=== PATIENT | female | born 1965 | race Caucasian/White ===

== ENCOUNTER → 2020-01-26 10:00 | Outpatient (BNVA) | payer OTHER, SELFPAY | PROVIDERS: Visit Provider Nurse Practitioner Family | DX: R68.89 Other general symptoms and signs (principal); J06.9 Acute upper respiratory infection, unspecified; B97.89 Other viral agents as the cause of diseases classified elsewhere | CPT/HCPCS: 87400 ==

== ENCOUNTER → 2020-05-06 16:24 | Outpatient (BNVA) | payer OTHER, SELFPAY | PROVIDERS: Visit Provider Emergency Medicine | DX: J43.9 Emphysema, unspecified (principal); R05 Cough; R06.02 Shortness of breath | CPT/HCPCS: 71046 ==

== ENCOUNTER → 2020-06-16 11:06 | Outpatient (BNVA) | payer OTHER, SELFPAY | PROVIDERS: Visit Provider Emergency Medicine | DX: J43.9 Emphysema, unspecified (principal); I10 Essential (primary) hypertension; E66.9 Obesity, unspecified; F17.200 Nicotine dependence, unspecified, uncomplicated; R53.83 Other fatigue; R60.9 Edema, unspecified | CPT/HCPCS: 71046; 80053; 80061; 83880; 84443; 85025 ==

== ENCOUNTER 2021-08-26 12:59 | Outpatient (CLI) | payer OTHER, SELFPAY ==
[2021-08-26 13:15] VITALS: BP 134/92; PULSE 73; RESP 18; TEMP 36.8; O2SAT 96; BMI 39.8
[2021-08-26 13:48] VITALS: BP 141/86; PULSE 64; RESP 18; TEMP 36.4; O2SAT 95
[2021-08-26 14:49] VITALS: BP 149/81; PULSE 66; RESP 18; TEMP 36.8; O2SAT 97
== END 2021-08-26 13:00 | disposition home or self-care (01) ==
LOC: OPS 13:01
PROVIDERS: PCP Emergency Medicine; Visit Provider Nurse Practitioner Family
DX: U07.1 COVID-19 (principal)
CPT/HCPCS: 96365

== ENCOUNTER → 2021-09-06 16:08 | Outpatient (BNVA) | payer OTHER, SELFPAY | PROVIDERS: PCP Emergency Medicine; Visit Provider Nurse Practitioner Family | DX: R39.9 Unspecified symptoms and signs involving the genitourinary system (principal) | CPT/HCPCS: 81000 ==

== ENCOUNTER → 2023-04-16 16:33 | Outpatient (BNVA) | payer OTHER, SELFPAY | PROVIDERS: Visit Provider Emergency Medicine | DX: M25.561 Pain in right knee (principal); M25.461 Effusion, right knee; M17.11 Unilateral primary osteoarthritis, right knee | CPT/HCPCS: 73562 ==

== ENCOUNTER 2024-01-08 10:40 | Emergency (ER) | payer OTHER, SELFPAY ==
[2024-01-08] VITALS (36 sets, daily range): BP systolic 117–166; BP diastolic 71–92; PULSE 68–91; RESP 12–32; TEMP 36.9; O2SAT 92–97; BMI 42.0
--- NOTE | 2024-01-08 10:43 | XRR_ITS ---
PROCEDURE INFORMATION: Exam: XR Chest Exam date and time: 01/08/2024 11:03 AM Age: 58 years old Clinical indication: Dyspnea and shortness of breath; Additional info: Chest pain TECHNIQUE: Imaging protocol: Radiologic exam of the chest. Views: 1 view. COMPARISON: CR XR chest 2V* [id number] 06/16/2020 11:24 AM FINDINGS: Lungs: No new focal infiltrate seen of the lungs. Probable calcified granuloma upper right lung. Nearly apical lordotic projection. Pleural spaces: No large or obvious pneumothorax nor pleural effusion seen. Heart/Mediastinum: Heart size appears within normal. Evidence of calcified mediastinal, hilar lymph nodes. Configuration right hilum may be due to vascular structures, overlap, slight changes in positioning, rotation of patient during. Bones/joints: Degenerative changes spine. XR/XR chest 1V portable [id number] IMPRESSION: No acute findings seen of the chest.
--- NOTE | 2024-01-08 10:43 | ECG_ITS ---
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 Measurements Intervals [place] Rate: 74 P: 68 NM: 155 QRS: 56 QRSD: 78 T: 69 QT: 380 QTc: 423 Interpretive Statements SINUS RHYTHM POSSIBLE LEFT ATRIAL ENLARGEMENT [-0.1mV P-WAVE IN V1/V2] LOW QRS VOLTAGE IN PRECORDIAL LEADS [QRS DEFLECTION < 1.0 mV IN CHEST LEADS] Compared to ECG 02/25/2018 11:41:24 Low QRS voltage now present Electronically Signed On 01-08-2024 23:05:15 CDT by Naomi Anderson M.D. [id number]
--- NOTE | 2024-01-08 10:49 | ED_ITS ---
HPI - Chest Pain 2 General: Chief Complaint: Chest Pain Stated Complaint: blood pressure issue, chest pressure Time Seen by Provider: 01/08/24 10:41 Source: patient Mode of arrival: ambulatory Limitations: no limitations History of Present Illness: Patient is a 58-year-old with a history of hypertension for evaluation of elevated blood pressure reading and some chest heaviness. Patient states she just recently has began taking her blood pressure routinely. She states she has been prescribed lisinopril 20mg daily for years but states over the past several months she has not been taking it. She states recently she was prompted by primary care for better medication compliance and thus has begun taking it again and measuring her blood pressure routinely-just started this yesterday. She states this morning when she measured her blood pressure it was 160s/90s. She states following this she developed some chest heaviness with radiation into the left shoulder. She states the symptoms began roughly around 6 AM this morning and have waxed and waned since onset. She has no known cardiac disease. She is not a smoker. MD complaint: chest heaviness Onset (ago): hour(s) Timing of current episode: episodic Prior episodes: No Onset: during rest Pain location: left chest Pain radiation: left shoulder Quality: heaviness Relieving factors: nothing Exacerbating factors: nothing Associated symptoms: Deny abdominal pain, dyspnea, fever(s), nausea, palpitations, syncope or vomiting Treatment prior to arrival: none Risk Factors: Coronary artery disease risk factors: hypertension Thoracic aortic dissection risk factors: none Related Data: On Oral Contraceptives: No Review of Systems 2 Const: Denies: fever(s) or chills Eyes: Denies: change in vision or blurry vision Card: Reports: chest pain; Denies: palpitations, irregular heart rhythm, edema, swelling of feet/ankles, lightheadedness, syncope, pre-syncope, dyspnea on exertion, orthopnea, leg pain with exertion or acrocyanosis Resp: Denies: dyspnea, productive cough or pain on inspiration GI: Denies: abdominal pain, nausea, vomiting, heartburn or diarrhea : Denies: dysuria Musc: Denies: neck pain, back pain, extremity pain, extremity swelling or joint pain Skin/Breast: Denies: rash Neuro: Denies: headache(s), numbness in extremities, weakness in extremities, sensory changes or dizziness PFS ED 2 PFSH: Medical History Need for tetanus booster Finger laceration Smoking Obesity Peripheral edema Fatigue HTN (hypertension) Social History Smoking and tobacco/nicotine status: former use of tobacco/nicotine Quit status (tobacco/nicotine): not considering quitting Alcohol intake: never Substance/Drug Use: never Current occupational status: employed Current gender identity: Female Female Reproductive History: Spontaneous abortions: No Physical Exam 2 Const: COMMON NORMALS: no acute distress, patient oriented x3, no limitations, alert and well nourished GENERAL APPEARANCE: cooperative NUTRITIONAL APPEARANCE: obese (BMI is 42.1) ORIENTATION/CONSCIOUSNESS: Yes awake, Yes oriented to person, Yes oriented to place and Yes oriented to time HENMT: COMMON NORMALS: normocephalic and atraumatic HEAD & SCALP: normal to inspection, normocephalic and atraumatic Neck/C-Spine: COMMON NORMALS: full ROM, no lymphadenopathy, supple and no meningeal signs Chest: COMMONS NORMALS: normal inspection of the chest and normal palpation of entire chest wall Resp: COMMON NORMALS: normal respiratory effort and clear to auscultation bilaterally AUSCULTATION: clear to auscultation bilaterally Cardio: COMMON NORMALS: regular rate and regular rhythm RATE: regular rate RHYTHM: regular rhythm GI: COMMON NORMALS: Normal to inspection, nondistended, normoactive bowel sounds present, Soft to palpation, non-tender, No hepatosplenomegaly present and no masses PALPATION: Yes Soft to palpation and Yes No hepatosplenomegaly present : COMMON NORMALS: Yes no CVA tenderness BLADDER/KIDNEY EXAM: Yes no CVA tenderness Back/Pelvis: COMMON NORMALS: no CVA tenderness and thoracic and lumbar spine normal to inspection Extremity: COMMON NORMALS: normal to inspection, capillary refill normal, no joint enlargement, no clubbing, cyanosis or edema, no calf tenderness and no pedal edema GENERAL: Yes normal exam except as noted Neuro: COMMON NORMALS: patient oriented x3, moves all extremities, no focal motor deficits and no sensory deficits noted SENSORIUM/ORIENTATION: Yes alert, Yes oriented to person, Yes oriented to place and Yes oriented to time MENINGEAL SIGNS: Yes no meningeal signs Skin: COMMON NORMALS: no rashes or lesions noted GENERAL SKIN EXAM: no rashes or lesions noted Course 2 Vital Signs: Vital signs: Vital Signs Temperature 98.4 F 01/08/24 10:45 Pulse Rate 71 01/08/24 13:15 Respiratory Rate 17 01/08/24 13:15 Blood Pressure 140/82 01/08/24 13:15 Pulse Oximetry 93 01/08/24 13:15 Oxygen Delivery Me thod Room Air 01/08/24 12:40 MDM - Chest Pain Medical Decision Making Patient here for intermittent chest pain starting around 6 AM this morning. Patient's baseline and repeat EKGs show no ischemic changes. Her baseline troponin is 15 with no previous comparisons. Delta troponin is nonsignificant at 0.29. EKG is unremarkable. Patient feeling better during her stay. Blood pressures trended downward. She states she just began keeping a blood pressure log starting yesterday. Recommend she keep this going to follow-up with primary care. Return precautions given. Lab Data 01/08/24 10:58 01/08/24 10:58 Radiology Impressions Chest X-Ray 01/08/24 10:43 IMPRESSION: No acute findings seen of the chest. Laboratory Results WBC 7.62 10^3/uL (3.29-11.43) 01/08/24 10:58 RBC 5.11 10^6/uL (3.85-5.65) 01/08/24 10:58 Hgb 16.10 g/dL (11.27-16.99) 01/08/24 10:58 Hct 48.6 % (36-47) H 01/08/24 10:58 MCV 95.1 fl (85-98) 01/08/24 10:58 MCH 31.5 pg (27-33) 01/08/24 10:58 MCHC 33.1 g/dL (30-55) 01/08/24 10:58 RDW 12.7 % (12.1-15.1) 01/08/24 10:58 Plt Count 192 10^3/cmm (157-399) 01/08/24 10:58 MPV 10.9 fL (7.4-10.4) H 01/08/24 10:58 Neut % (Auto) 61.7 % 01/08/24 10:58 Lymph % (Auto) 29.0 % 01/08/24 10:58 Crockett % (Auto) 5.4 % 01/08/24 10:58 Eos % (Auto) 3.1 % 01/08/24 10:58 Baso % (Auto) 0.5 % 01/08/24 10:58 Neut # (Auto) 4.70 10^3/uL (1.8-7.7) 01/08/24 10:58 Lymph # (Auto) 2.2 10^3/uL (0.8-4.8) 01/08/24 10:58 Crockett # (Auto) 0.4 10^3/uL (0.2-0.9) 01/08/24 10:58 Eos # (Auto) 0.2 10^3/uL (0.0-0.8) 01/08/24 10:58 Baso # (Auto) 0.0 10^3/uL (0.0-0.1) 01/08/24 10:58 Nucleated RBC % (auto) 0 % 01/08/24 10:58 Nucleated RBCs # 0.0 /100WBC 01/08/24 10:58 Sodium 142 mmol/L (136-145) 01/08/24 10:58 Potassium 4.3 mmol/L (3.5-5.1) 01/08/24 10:58 Chloride 105 mmol/L (98-107) 01/08/24 10:58 Carbon Dioxide 27 mmol/L (22-29) 01/08/24 10:58 Anion Gap 14.3 (5-19) 01/08/24 10:58 BUN 10 mg/dL (6-20) 01/08/24 10:58 Creatinine 0.8 mg/dL (0.5-0.9) 01/08/24 10:58 GFR Calculation 73.9 mL/min (90-130) L 01/08/24 10:58 Glucose 130 mg/dL (65-115) H 01/08/24 10:58 Calculated Osmolality 295 mOsm/kg (285-295) 01/08/24 10:58 Calcium 9.2 mg/dL (8.5-10.5) 01/08/24 10:58 Total Bilirubin 0.3 mg/dL (0.15-1.2) 01/08/24 10:58 AST 17 U/L (0-32) 01/08/24 10:58 ALT 16 U/L (0-33) 01/08/24 10:58 Alkaline Phosphatase 88 U/L (35-105) 01/08/24 10:58 Troponin T Baseline 15 ng/L (0-10) H 01/08/24 10:58 Troponin T 120 Minute 15.29 ng/L (0-10) H 01/08/24 12:44 Delta Troponin T 0.29 ABS# (0-10) 01/08/24 12:44 Total Protein 6.9 g/dL (6.6-8.7) 01/08/24 10:58 Albumin 4.0 g/dL (3.5-5.2) 01/08/24 10:58 Globulin 2.9 g/dL (1.3-4.6) 01/08/24 10:58 All radiology interpretation(s) finalized by discharge Discharge Plan Discharge Patient Disposition: Home Clinical Impression: Atypical chest pain Condition: Stable Prescriptions: No Action ibuprofen 200 mg Tablet 800 mg PO Q6H PRN (Reason: Pain) Prilosec OTC 20 mg Tablet,Delayed Release (Dr/Ec) 20 mg PO DAILY PRN (Reason: Heartburn) melatonin 10 mg Tablet 10 mg PO BEDTIME lisinopril 20 mg tablet 20 mg PO QAM Discharge Orders: Discharge ED (Routine); Ordered 01/08/24 Ordered By: Barbara Barrett Patient Instructions: Chest Pain (DC) Activity Restrictions/Additional Instructions: As we discussed continue to keep a blood pressure log and follow-up with primary care so blood pressure medications can be increased if needed. You also need to follow-up with primary care in regards to today's visit. You may speak to them in regards to an outpatient cardiac stress test. You may return to the emergency department for worsening chest pain, shortness of breath, difficulty breathing, or any other concerns you may have. Coding Level of Care Code ED Tur[employer] And Grounds Supervisor for Mello Lopez
--- NOTE | 2024-01-08 10:57 | PC.PHAR ---
pt states she takes care of her own medications-pt states she is still taking lisinopril 20mg qam ext med history shows last filled 10/24/23 60d/s-
[2024-01-08 11:08] LABS: Basophils % 0.5 %; Eosinophils # 0.2 10^3/uL (0.0-0.8); Eosinophils % 3.1 %; Hematocrit 48.6 % (36-47); Lymphocytes # 2.2 10^3/uL (0.8-4.8); Mean Corpuscular HGB Conc 33.1 g/dL (30-55); Mean Corpuscular Hemoglobin 31.5 pg (27-33); Mean Corpuscular Volume 95.1 fl (85-98); Mean Platelet Volume 10.9 fL (7.4-10.4); Monocytes # 0.4 10^3/uL (0.2-0.9); Monocytes % 5.4 %; Neutrophils % 61.7 %; Nucleated Red Blood Cells % 0 %; Platelet Count 192 10^3/cmm (157-399); Red Blood Count 5.11 10^6/uL (3.85-5.65); Red Cell Distribution Width 12.7 % (12.1-15.1); White Blood Count 7.62 10^3/uL (3.29-11.43)
[2024-01-08] MEDS: nitroglycerin 0.4 mg sublingual Tablet 0.400000000000000022 MG SUBLINGUAL (11:17)
[2024-01-08] MEDS: acetaminophen 500 mg Tablet 1000 MG PO (11:29)
[2024-01-08 11:37] LABS: Alanine Aminotransferase 16 U/L (0-33); Alkaline Phosphatase 88 U/L (35-105); Anion Gap 14.3 (5-19); Aspartate Amino Transferase 17 U/L (0-32); Blood Urea Nitrogen 10 mg/dL (6-20); Calcium 9.2 mg/dL (8.5-10.5); Carbon Dioxide 27 mmol/L (22-29); Chloride 105 mmol/L (98-107); Creatinine Clr Calc Pharmacy 94.6448; Globulin 2.9 g/dL (1.3-4.6); Glomerular Filtration Rate 73.9 mL/min (90-130); Glucose 130 mg/dL (65-115); Osmolality Calculated 295 mOsm/kg (285-295); Potassium 4.3 mmol/L (3.5-5.1); Sodium 142 mmol/L (136-145); Total Bilirubin 0.3 mg/dL (0.15-1.2); Total Protein 6.9 g/dL (6.6-8.7)
[2024-01-08 11:38] LABS: Troponin(5th) Baseline 15 ng/L (0-10)
--- NOTE | 2024-01-08 11:44 | ECG_ITS ---
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 Measurements Intervals [place] Rate: 69 P: 53 TN: 164 QRS: 59 QRSD: 80 T: 69 QT: 399 QTc: 430 Interpretive Statements SINUS RHYTHM Compared to ECG 01/08/2024 10:47:42 No significant changes Electronically Signed On 01-08-2024 23:20:43 CDT by Naomi Anderson M.D. [id number]
[2024-01-08 13:18] LABS: Troponin 5 2HR 15.29 ng/L (0-10); Troponin 5 2HR Delta 0.29 ABS# (0-10)
== END 2024-01-08 13:45 | disposition home or self-care (01) ==
PROVIDERS: Emergency Provider Physician Assistant
DX: R07.89 Other chest pain (principal); I10 Essential (primary) hypertension; Z87.891 Personal history of nicotine dependence
CPT/HCPCS: 36415; 71045; 80053; 84484; 85025; 93005; 96374; 99285

== ENCOUNTER 2024-08-16 17:57 | Emergency (ER) | payer OTHER, SELFPAY ==
[2024-08-16 18:20] VITALS: BP 185/94; PULSE 80; RESP 16; TEMP 36.7; O2SAT 96; BMI 40.5
--- NOTE | 2024-08-16 18:36 | XRR_ITS ---
PROCEDURE INFORMATION: Exam: XR Right Shoulder Exam date and time: 08/16/2024 6:40 PM Age: 58 years old Clinical indication: Right; Patient HX: RT shoulder pain with limited rom; No known injury TECHNIQUE: Imaging protocol: Radiologic exam of the right shoulder. Views: 2 or more views. COMPARISON: CR XR chest 1V portable [id number] 01/08/2024 11:03 AM FINDINGS: Bones/joints: Mild acromioclavicular degenerative change. No evidence of acute fracture or dislocation. Normal appearance of the glenohumeral joint. Visualized right ribs are normal. Soft tissues: Normal. XR/XR shoulder RT min 2V* [id number] IMPRESSION: Acromioclavicular osteoarthritis. No acute abnormality.
--- NOTE | 2024-08-16 20:25 | ED_ITS ---
HPI - Extremity Problem General: Chief complaint: Extremity Injury, Upper Stated complaint: shoulder pain Time Seen by Provider: 08/16/24 19:56 History of Present Illness: This patient is a 58-year-old white female who presents to the emergency department complaining of right shoulder pain. Patient states she woke up morning and she had pain radiating from the neck down into the right shoulder. She thought maybe she just slept wrong. Pain has been persistent. Related Data Home Medications Medication Instructions Recorded Confirmed ibuprofen 200 mg tablet 800 mg PO Q6H PRN Pain 01/08/24 05/09/24 lisinopril 20 mg tablet 20 mg PO QAM 01/08/24 05/09/24 melatonin 10 mg tablet 10 mg PO BEDTIME 01/08/24 05/09/24 omeprazole magnesium 20 mg 20 mg PO DAILY PRN Heartburn 01/08/24 05/09/24 tablet,delayed release (Prilosec OTC) Previous Rx's Medication Instructions Recorded diclofenac sodium 3 % topical gel 1 applic topical BID PRN muscle 05/09/24 pain, tension #100 grams baclofen 5 mg tablet 5 mg PO TID muscle spasm #30 tabs 08/16/24 hydrocodone 5 mg-acetaminophen 325 1 tab PO Q4H PRN pain #30 tabs 08/16/24 mg tablet ibuprofen 800 mg tablet 800 mg PO TID #30 tabs 08/16/24 methylprednisolone 4 mg tablets in See Rx Instructions PO .COMPLEX 08/16/24 a dose pack (Medrol ([place])) #21 ea Allergies Allergy/AdvReac Type Severity Reaction Status Date / Time Penicillins Allergy hives Verified 08/16/24 18:23 Review of Systems General: Reports: 10 or more systems reviewed and unremarkable except in HPI and below Musc: Reports: neck pain PFSH ED PFSH: Medical History Need for tetanus booster Finger laceration Smoking Obesity Peripheral edema Fatigue HTN (hypertension) Social History Smoking and tobacco/nicotine status: never used tobacco/nicotine Quit status (tobacco/nicotine): not considering quitting Alcohol intake: never Substance/Drug Use: never Current occupational status: employed Current gender identity: Female Female Reproductive History: Spontaneous abortions: No Physical Exam Const: COMMON NORMALS: no acute distress, patient oriented x3 and no limitations GENERAL APPEARANCE: cooperative and comfortable HENMT: COMMON NORMALS: normocephalic, atraumatic, Normal nasal mucous membranes and turbinates present, moist oral mucous membranes and oropharynx normal HEAD & SCALP: normal to inspection, normocephalic and atraumatic FACE & SINUS: normal facial exam NOSE: Normal nasal mucous membranes and turbinates present Eye: COMMON NORMALS: Equal, round and reactive pupils present, EOMs intact bilaterally and conjunctivae normal GENERAL EYE: appearance normal, both eyes and all related structures CONJUNCTIVA: Yes conjunctivae normal PUPIL: Yes Equal, round and reactive pupils present Neck/C-Spine: COMMON NORMALS: full ROM and no JVD GENERAL: Yes normal visual inspection OTHER: Some mild discomfort with range of motion of the neck which radiates down into the right shoulder posteriorly. Chest: COMMONS NORMALS: normal inspection of the chest Resp: COMMON NORMALS: normal respiratory effort and clear to auscultation bilaterally AUSCULTATION: clear to auscultation bilaterally Cardio: COMMON NORMALS: no JVD, regular rate, regular rhythm, No gallops present (Cardio), No murmurs present (Cardio) and No rub (Cardio) RATE: regular rate RHYTHM: regular rhythm GI: COMMON NORMALS: Normal to inspection, nondistended, normoactive bowel sounds present, Soft to palpation and non-tender AUSCULTATION: Yes normoactive bowel sounds PALPATION: Yes Soft to palpation : COMMON NORMALS: Yes no CVA tenderness BLADDER/KIDNEY EXAM: Yes no CVA tenderness Back/Pelvis: COMMON NORMALS: no CVA tenderness and thoracic and lumbar spine normal to inspection Extremity: COMMON NORMALS: normal to inspection NARRATIVE EXTREMITY EXAM: Full range of motion of the right shoulder with mild discomfort that radiates along the right scapula and up into the neck. Neuro: COMMON NORMALS: patient oriented x3 and CN's II-XII intact bilaterally Psych: COMMON NORMALS: mental status grossly normal, Normal thought process present and cooperative THOUGHT PROCESS: Normal thought process present Skin: COMMON NORMALS: no rashes or lesions noted, turgor normal and no j aundice GENERAL SKIN EXAM: no rashes or lesions noted and turgor normal Course Vital Signs: Vital signs: Vital Signs Temperature 98.1 F 08/16/24 18:20 Pulse Rate 80 08/16/24 18:20 Respiratory Rate 16 08/16/24 18:20 Blood Pressure 185/94 08/16/24 18:20 Pulse Oximetry 96 08/16/24 18:20 Oxygen Delivery Me thod Room Air 08/16/24 18:20 MDM - Extremity (Nontraumatic) Medical Decision Making X-rays of the right shoulder were normal. Patient likely has a cervical radiculopathy. I recommended she follow-up with her primary care physician and have them order an MRI of her cervical spine. She was given injections of Toradol and morphine in the emergency department for her pain. I did place her on Medrol, ibuprofen, baclofen and hydrocodone. She was discharged in stable condition. XR interpretation done by ED provider, pending radiology final review Discharge Plan Discharge Patient Disposition: Home Clinical Impression: Cervical radiculopathy Condition: Stable Prescriptions: New ibuprofen 800 mg tablet 800 mg PO TID Qty: 30 0RF methylprednisolone [Medrol ([place])] 4 mg tablets,dose pack See Rx Instructions .ROUTE .COMPLEX Qty: 21 0RF Rx Instructions: for 6 days baclofen 5 mg tablet 5 mg PO TID Qty: 30 0RF hydrocodone-acetaminophen 5-325 mg tablet 1 tab PO Q4H PRN (Reason: pain) Qty: 30 0RF No Action diclofenac sodium 3 % gel 1 applic topical BID PRN (Reason: muscle pain, tension) Qty: 100 0RF Rx Instructions: rub in well ibuprofen 200 mg Tablet 800 mg PO Q6H PRN (Reason: Pain) Prilosec OTC 20 mg Tablet,Delayed Release (Dr/Ec) 20 mg PO DAILY PRN (Reason: Heartburn) melatonin 10 mg Tablet 10 mg PO BEDTIME lisinopril 20 mg tablet 20 mg PO QAM Discharge Orders: Discharge ED (Routine); Ordered 08/16/24 Ordered By: Serafin Zamorano Patient Instructions: Cervical Radiculopathy, Opioid Safety, Pain Management Coding Level of Care Code ED Burial Vault Maker for Mello Lopez
[2024-08-16] MEDS: ketorolac 60 mg/2 mL INJ IM (20:40)
[2024-08-16] MEDS: ondansetron 4 MG Tablet PO (20:40)
[2024-08-16] MEDS: morphine 4 mg/mL SDV 1 mL 6 MG IM (20:40)
[2024-08-16 20:51] VITALS: BP 140/104; PULSE 84; RESP 18; O2SAT 100
== END 2024-08-16 20:57 | disposition home or self-care (01) ==
PROVIDERS: Emergency Provider Emergency Medicine
DX: M54.12 Radiculopathy, cervical region (principal); I10 Essential (primary) hypertension
CPT/HCPCS: 73030; 96372; 99284; J1885; J2270; Q0162

== ENCOUNTER 2025-02-07 19:59 | Emergency (ER) | payer OTHER, SELFPAY ==
--- NOTE | 2025-02-07 20:03 | ECG_ITS ---
[facility] Date: 2025-[facility]-07 Pat Name: Lise Araiza Department: Room: Gender: Female Manager Primary Care: : 1965 Requested By: Lobo Reynaga Order Number: [id number] Naveed MD: Naomi Anderson M.D. Measurements Intervals [place] Rate: 84 P: 64 VT: 142 QRS: 42 QRSD: 90 T: 64 QT: 355 QTc: 422 Interpretive Statements SINUS RHYTHM LOW QRS VOLTAGE IN PRECORDIAL LEADS [QRS DEFLECTION < 1.0 mV IN CHEST LEADS] Compared to ECG 01/08/2024 11:44:27 Low QRS voltage now present Electronically Signed On 02-08-2025 21:15:10 CDT by Naomi Anderson M.D. [email or web address] [id number]
[2025-02-07 20:04] VITALS: BP 159/85; PULSE 88; RESP 18; TEMP 37.5; O2SAT 94
--- NOTE | 2025-02-07 20:28 | XRR_ITS ---
PROCEDURE INFORMATION: Exam: XR Chest Exam date and time: 02/07/2025 9:35 PM Age: 59 years old Clinical indication: Cough; Additional info: Cough/ chest pressure TECHNIQUE: Imaging protocol: Radiologic exam of the chest. Views: 1 view. COMPARISON: CR XR chest 1V portable [id number] 01/08/2024 11:03 AM FINDINGS: Lungs: Unremarkable. No consolidation. Pleural spaces: Unremarkable. No pleural effusion. No pneumothorax. Heart/Mediastinum: There are stable calcified right paratracheal lymph nodes. Bones/joints: Unremarkable. XR/XR chest 1V portable [id number] IMPRESSION: There are no acute chest findings. Stable appearance of the chest compared with 01/08/2024.
[2025-02-07 20:52] LABS: Basophils # 0.1 10^3/uL (0.0-0.1); Basophils % 0.6 %; Eosinophils # 0.3 10^3/uL (0.0-0.8); Eosinophils % 2.6 %; Hematocrit 47.2 % (36-47); Lymphocytes # 2.3 10^3/uL (0.8-4.8); Lymphocytes % 21.6 %; Mean Corpuscular HGB Conc 32.4 g/dL (30-55); Mean Corpuscular Hemoglobin 31.1 pg (27-33); Mean Corpuscular Volume 95.9 fl (85-98); Mean Platelet Volume 10.8 fL (7.4-10.4); Monocytes # 0.7 10^3/uL (0.2-0.9); Monocytes % 6.7 %; Neutrophils # 7.38 10^3/uL (1.8-7.7); Neutrophils % 68.1 %; Nucleated Red Blood Cells % 0 %; Platelet Count 207 10^3/cmm (157-399); Red Blood Count 4.92 10^6/uL (3.85-5.65); Red Cell Distribution Width 12.7 % (12.1-15.1); White Blood Count 10.81 10^3/uL (3.29-11.43)
[2025-02-07 21:01] LABS: Blood Urea Nitrogen 12 mg/dL (6-20); Calcium 9.6 mg/dL (8.5-10.5); Carbon Dioxide 27 mmol/L (22-29); Chloride 102 mmol/L (98-107); Creatinine Clr Calc Pharmacy 80.1877; Glomerular Filtration Rate 64.3 mL/min (90-130); Glucose 114 mg/dL (65-115); Osmolality Calculated 291 mOsm/kg (285-295); Sodium 140 mmol/L (136-145)
--- NOTE | 2025-02-07 21:19 | ED_ITS ---
HPI - URI/Sore Throat 2 General: Chief Complaint: Upper Respiratory Infection Stated Complaint: Chest pressure, Cough SOB Time Seen by Provider: 02/07/25 21:09 Source: patient Mode of arrival: ambulatory Limitations: no limitations History of Present Illness: Patient is a nice 59-year-old female who presents to ED today with a complaint of a productive cough and burning in her chest. Patient states she has had a productive cough over the past 2 to 3 days. 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 Patient states when she coughs, she feels like her airway gonzalez. She does not have symptoms if she is not coughing. She did have a coughing spell earlier today that left her winded which concerned her. Upon arrival she feels improved and is no longer having significant shortness of breath. She arrives with stable vital signs. MD elicited complaint: cough Onset (ago): day(s) Severity: moderate Description of mucous: yellow Able to tolerate fluids by mouth: Yes Exacerbating factors: other (coughing) Relieving factors: nothing Context: sick contacts Associated symptoms: Reports no associated symptoms, chills and chest pain (burning when coughing); Deny abdominal pain, diarrhea, fever(s), headache(s), nausea or vomiting Treatments prior to arrival: none Related Data Home Medications ?Medication ?Instructions ?Recorded ?Confirmed ibuprofen 200 mg tablet 800 mg PO Q6H PRN Pain 01/0705/09/24 lisinopril 20 mg tablet 20 mg PO QAM 01/08/24 melatonin 10 mg tablet 10 mg PO BEDTIME 01/08/24 omeprazole magnesium 20 mg 20 mg PO DAILY PRN Heartbur n 01/08/24 05/09/24 tablet,delayed release (Prilosec OTC) Previous Rx's ?Medication ?Instructions ?Recorded diclofenac sodium 3 % topical gel 1 applic topical BID PRN muscle 05/09/24 pain, tension #100 grams baclofen 5 mg tablet 5 mg PO TID muscle spasm #30 tabs 08/16/24 ibuprofen 800 mg tablet 800 mg PO TID #30 tabs 08/16 methylprednisolone 4 mg tablets in See Rx Instructions PO .COMPLEX 08/16/24 a dose pack (Medrol ([place])) #21 ea hydrocodone 5 mg-acetaminophen 325 1 tab PO Q6H PRN pa in #20 tabs 08/18/24 mg tablet albuterol sulfate 90 mcg/actuation 2 inh inhalation Q4 H PRN shortness 02/07/25 aerosol inhaler of breath or wheezing #6.7 g lisa benzonatate 100 mg capsule 100 mg PO TID PRN cough #21 caps 02/07/25 prednisone 10 mg tablet 10 mg PO DAILY 6 days #20 ta bs 02/07/25 Allergies Allergy/AdvReac Type Severity Reaction Status Date / Time Penicillins Allergy hives Verified 02/07/25 20:06 Review of Systems 2 Const: Reports: chills; Denies: fever(s), body aches, fatigue or malaise ENMT: Denies: throat pain or odynophagia Card: Reports: chest pain (burning when coughing); Denies: palpitations, irregular heart rhythm, edema, swelling of feet/ankles, lightheadedness, syncope, pre-syncope, dyspnea on exertion, orthopnea, leg pain with exertion or acrocyanosis Resp: Reports: dyspnea (episode earlier today-resolved now), productive cough, change in phlegm color and chest congestion; Denies: hemoptysis GI: Denies: abdominal pain, nausea, vomiting or diarrhea Musc: Denies: neck pain, back pain, extremity pain, extremity swelling, joint pain or joint swelling Skin/Breast: Denies: rash Neuro: Denies: headache(s) or dizziness PFSH ED 2 PFSH: Medical History Need for tetanus booster Finger laceration Smoking Obesity Peripheral edema Fatigue HTN (hypertension) Social History Smoking and tobacco/nicotine status: former use of tobacco/nicotine Quit status (tobacco/nicotine): not considering quitting Alcohol intake: never Substance/Drug Use: never Current occupational status: employed Current gender identity: Female Female Reproductive History: Spontaneous abortions: No Physical Exam 2 Const: COMMON NORMALS: no acute distress, average body habitus, patient oriented x3, no limitations, alert and well nourished Chest: COMMONS NORMALS: normal inspection of the chest and normal palpation of entire chest wall Resp: COMMON NORMALS: normal respiratory effort and clear to auscultation bilaterally AUSCULTATION: clear to auscultation bilaterally Cardio: COMMON NORMALS: regular rate and regular rhythm RATE: regular rate RHYTHM: regular rhythm Neuro: COMMON NORMALS: patient oriented x3 SENSORIUM/ORIENTATION: Yes alert Course 2 Vital Signs: Vital signs: Vital Signs Temperature 99.5 F 02/07/25 20:04 Pulse Rate 83 02/07/25 22:10 Respiratory Rate 18 02/07/25 20:04 Blood Pressure 146/94 02/07/25 22:10 Pulse Oximetry 99 02/07/25 22:10 Oxygen Delivery Me thod Room Air 02/07/25 20:04 MDM - URI/Sore Throat Medical Decision Making Blood work ordered from triage was unremarkable. Her EKG is nonischemic. CXR showing no acute findings when compared to previous. Influenza/COVID/RSV swab was negative. At this point symptoms most likely are viral. Will treat with steroids, albuterol inhaler, and tessalon perles to help with her cough. Recommend she follow-up with primary care in a week or two if symptoms or not improving. Return to ED precautions discussed. Differential Diagnosis Likely upper respiratory infection, viral infection and bronchitis Medical Records I reviewed the patient's medical records. Lab Data I reviewed the patient's lab results. 02/07/25 20:38 02/07/25 20:38 Laboratory Results WBC 10.81 10^3/uL (3.29-11.43) 02/07/25 20:38 RBC 4.92 10^6/uL (3.85-5.65) 02/07/25 20:38 Hgb 15.30 g/dL (11.27-16.99) 02/07/25 20:38 Hct 47.2 % (36-47) H 02/07/25 20:38 MCV 95.9 fl (85-98) 02/07/25 20:38 MCH 31.1 pg (27-33) 02/07/25 20:38 MCHC 32.4 g/dL (30-55) 02/07/25 20:38 RDW 12.7 % (12.1-15.1) 02/07/25 20:38 Plt Count 207 10^3/cmm (157-399) 02/07/25 20:38 MPV 10.8 fL (7.4-10.4) H 02/07/25 20:38 Neut % (Auto) 68.1 % 02/07/25 20:38 Lymph % (Auto) 21.6 % 02/07/25 20:38 [place] % (Auto) 6.7 % 02/07/25 20:38 Eos % (Auto) 2.6 % 02/07/25 20:38 Baso % (Auto) 0.6 % 02/07/25 20: Neut # (Auto) 7.38 10^3/uL (1.8-7.7) 02/07/25 20: Lymph # (Auto) 2.3 10^3/uL (0.8-4.8) 02/07/25 20: [place] # (Auto) 0.7 10^3/uL (0.2-0.9) 02/07/25 20: Eos # (Auto) 0.3 10^3/uL (0.0-0.8) 02/07/25 20: Baso # (Auto) 0.1 10^3/uL (0.0-0.1) 02/07/25 20: Nucleated RBC % (auto) 0 % 02/07/25 20: Nucleated RBCs # 0.0 /100WBC 02/07/25 20:38 Sodium 140 mmol/L (136-145) 02/07/25 20: Potassium 4.0 mmol/L (3.5-5.1) 02/07/25 20: Chloride 102 mmol/L (98-107) 02/07/25 20: Carbon Dioxide 27 mmol/L (22-29) 02/07/25 20:38 Anion Gap 15.0 (5-19) 02/07/25 20:38 BUN 12 mg/dL (6-20) 02/07/25 20: Creatinine 0.9 mg/dL (0.5-0.9) 02/07/25 20: GFR Calculation 64.3 mL/min (90-130) L 02/07/25 20:38 Glucose 114 mg/dL (65-115) 02/07/25 20:38 Calculated Osmolality 291 mOsm/kg (285-295) 02/07/25 20: Calcium 9.6 mg/dL (8.5-10.5) 02/07/25 20:38 Influenza A (PCR) Negative (Negative) 02/07/25 21:14 Influenza Type B (PCR) Negative (Negative) 02/07/25 21:14 RSV (PCR) Negative (Negative) 02/07/25 21:14 SARS-CoV-2 (PCR) Negative (Negative) 02/07/25 21:14 XR interpretation done by ED provider, pending radiology final review Discharge Plan Discharge Patient Disposition: Home Clinical Impression: Viral URI with cough Condition: Stable Prescriptions: New prednisone 10 mg tablet 10 mg PO DAILY 6 Days Qty: 20 0RF Rx Instructions: Take 5 tabs on day 1-2, 4 tabs on day 3, 3 tabs on day 4, 2 tabs on day 5, and 1 tab on day 6 albuterol sulfate 90 mcg/actuation HFA aerosol inhaler 2 inh INHALATION Q4H PRN (Reason: shortness of breath or wheezing) Qty: 6.7 0RF benzonatate 100 mg capsule 100 mg PO TID PRN (Reason: cough) Qty: 21 0RF Rx Instructions: Can take 1-2 tabs up to TID. Max 600mg/day. No Action diclofenac sodium 3 % gel 1 applic topical BID PRN (Reason: muscle pain, tension) Qty: 100 0RF Rx Instructions: rub in well ibuprofen 200 mg Tablet 800 mg PO Q6H PRN (Reason: Pain) Prilosec OTC 20 mg Tablet,Delayed Release (Dr/Ec) 20 mg PO DAILY PRN (Reason: Heartburn) melatonin 10 mg Tablet 10 mg PO BEDTIME lisinopril 20 mg tablet 20 mg PO QAM ibuprofen 800 mg tablet 800 mg PO TID Qty: 30 0RF methylprednisolone [Medrol ([place])] 4 mg tablets,dose pack See Rx Instructions .ROUTE .COMPLEX Qty: 21 0RF Rx Instructions: for 6 days baclofen 5 mg tablet 5 mg PO TID Qty: 30 0RF hydrocodone-acetaminophen 5-325 mg tablet 1 tab PO Q6H PRN (Reason: pain) Qty: 20 0RF Discharge Orders: Discharge ED (Routine); Ordered 02/07/25 Ordered By: Barbara Barrett Patient Instructions: Upper Respiratory Infection (DC), Acute Bronchitis (ED) Print Language: Djiboutian Coding Level of Care Code 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
[2025-02-07 21:58] LABS: Influenza A NEGATIVE (Negative); Influenza B NEGATIVE (Negative); Respiratory Syncytial Virus Ce NEGATIVE (Negative); SARS-CoV-2 PCR NEGATIVE (Negative)
[2025-02-07] MEDS: methylPREDNISolone sod succ 125 mg/2 mL INJ IM (22:08)
[2025-02-07 22:10] VITALS: BP 146/94; PULSE 83; O2SAT 99
== END 2025-02-07 22:12 | disposition home or self-care (01) ==
PROVIDERS: Emergency Medicine; Emergency Provider Physician Assistant
DX: J06.9 Acute upper respiratory infection, unspecified (principal); Z11.52 Encounter for screening for COVID-19; R05.9 Cough, unspecified; Z87.891 Personal history of nicotine dependence
CPT/HCPCS: 36415; 71045; 80048; 85025; 87637; 93005; 96372; 99285; J2919